=== PATIENT | male | born 1965 | race Caucasian/White ===

== ENCOUNTER 2019-06-29 16:28 | Emergency (ER) | payer SELFPAY ==
[2019-06-29 16:45] VITALS: BP 113/71
--- NOTE | 2019-06-29 16:50 | ER Document Report ---
ED Wound - General Chief Complaint: Wound Recheck Stated Complaint: WOUND CHECK Time Seen by Provider: 06/29/19 16:41 Primary Care Provider: SUMIT EDEN [NO LOCAL MD] - Follow up as needed Mode of Arrival: Ambulatory Information source: Patient Notes: 54-year-old male presented to ED for complaint of need for wound care to his bilateral lower extremity stasis ulcers. He states he last had them changed a week ago and has been getting them changed once a week with Acticoat dressings. He states he is trying to switch to the wound care clinic in [place] he has been going to [facility] wound care clinic. He states he cannot get into [place] and toe the of the month. He is alert oriented respirations regular nonlabored speaking in full sentences. He states the wounds are getting better he just needs the dressings changed. Dates he just traveled from [place] to [place] on . TRAVEL OUTSIDE OF THE [place] IN LAST 30 DAYS: No - HPI Patient complains to provider of: Other - Stasis ulcers both lower legs Occurred: Other - Off and on year and a half Onset/Duration: Intermittent Severity: Moderate Pain Level: 4 Skin Color: Erythema Associated Symptoms: Other - Related Data Allergies/Adverse Reactions: No Known Allergies Allergy (Unverified 06/29/19 16:49) Past Medical History - General Information source: Patient - Social History Smoking Status: Former Smoker Frequency of alcohol use: None Drug Abuse: None Lives with: Family Family History: Reviewed & Not Pertinent Patient has suicidal ideation: No Patient has homicidal ideation: No - Past Medical History Cardiac Medical History: Reports: Hx Congestive Heart Failure Pulmonary Medical History: Reports: Other - 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 EENT Medical History: Reports: None Neurological Medical History: Reports: None Endocrine Medical History: Reports: Hx Diabetes Mellitus Type 2 Renal/ Medical History: Reports: None Malignancy Medical History: Reports None GI Medical History: Reports: None Musculoskeletal Medical History: Reports Hx Arthritis, Reports Hx Musculoskeletal Deformity, Reports Hx Musculoskeletal Trauma Skin Medical History: Reports None Psychiatric Medical History: Reports: None Traumatic Medical History: Reports: Hx Fractures Infectious Medical History: Reports: None Past Surgical History: Reports: Hx Genitourinary Surgery - Vasectomy, Hx Tonsillectomy, 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 - Immunizations Immunizations up to date: Yes Hx Diphtheria, Pertussis, Tetanus Vaccination: Yes - 2018 Review of Systems - Review of Systems Constitutional: No symptoms reported EENT: No symptoms reported Cardiovascular: No symptoms reported Respiratory: No symptoms reported Gastrointestinal: No symptoms reported Genitourinary: No symptoms reported Male Genitourinary: No symptoms reported Musculoskeletal: No symptoms reported Skin: Other - Lysis ulcers Hematologic/Lymphatic: No symptoms reported Neurological/Psychological: No symptoms reported -: Yes All other systems reviewed and negative Physical Exam - Vital signs Vitals: Temp Pulse Resp BP Pulse Ox 98.1 F 100 18 113/71 97 06/29/19 16:44 06/29/19 16:44 06/29/19 16:44 06/29/19 16:44 06/29/19 16:44 Interpretation: Normal - General General appearance: Appears well, Alert - HEENT Head: Normocephalic, Atraumatic Eyes: Normal Pupils: PERRL - Respiratory Respiratory status: No respiratory distress Chest status: Nontender Breath sounds: Normal Chest palpation: Normal - Cardiovascular Rhythm: Regular Heart sounds: Normal auscultation Murmur: No - Abdominal Inspection: Normal Distension: No distension Bowel sounds: Normal Tenderness: Nontender Organomegaly: No organomegaly - Back Back: Normal, Nontender - Extremities General upper extremity: Normal inspection, Nontender, Normal color, Normal ROM, Normal temperature General lower extremity: Normal inspection, Nontender, Normal color, Normal ROM, Normal temperature, Normal weight bearing. No: Izzy's sign - Neurological Neuro grossly intact: Yes Cognition: Normal Orientation: AAOx4 [place] Coma Scale Eye Opening: Spontaneous [place] Coma Scale Verbal: Oriented Jenny Coma Scale Motor: Obeys Commands [place] Coma Scale Total: 15 Speech: Normal Motor strength normal: LUE, RUE, LLE, RLE Sensory: Normal - Psychological Associated symptoms: Normal affect, Normal mood - Skin Skin Temperature: Warm Skin Moisture: Dry Skin Color: Normal Course - Vital Signs Vital signs: Temp Pulse Resp BP Pulse Ox 98.1 F 100 18 113/71 97 06/29/19 16:44 06/29/19 16:44 06/29/19 16:44 06/29/19 16:44 06/29/19 16:44 Discharge - Discharge Clinical Impression: Encounter for wound re-check Condition: Stable Disposition: HOME, SELF-CARE Additional Instructions: Please follow-up with the senior procurement specialist as you are prescribed. If you cannot follow-up with your primary care or return to the ED in 1 week for redressing of your wounds. Silvadene please bring the Silvadene back with you. FOLLOW-UP CARE: If you have been referred to a physician for follow-up care, call the physicians office for an appointment as you were instructed or within the next two days. If you experience worsening or a significant change in your symptoms, notify the physician immediately or return to the Emergency Department at any time for re-evaluation. Referrals: LOCALMD,NO [NO LOCAL MD] - Follow up as needed
[2019-06-29] MEDS ORDERED: SILVER SULFADIAZINE 1% CREAM 400 GM TP ONE (16:51)
== END 2019-06-29 18:23 | disposition home or self-care (01) ==
LOC: ER 16:28
DX: I83.009 Varicose veins of unspecified lower extremity with ulcer of unspecified site (principal); I50.9 Heart failure, unspecified; E11.9 Type 2 diabetes mellitus without complications
CPT/HCPCS: 99282; J3490

== ENCOUNTER 2019-07-06 12:20 | Emergency (ER) | payer SELFPAY ==
[2019-07-06] MEDS ORDERED: SILVER SULFADIAZINE 1% CREAM 25 GM TP ONE (12:48)
--- NOTE | 2019-07-06 12:54 | ER Document Report ---
ED General - General Chief Complaint: Wound Recheck Stated Complaint: WOUND RECHECK Time Seen by Provider: 07/06/19 12:34 TRAVEL OUTSIDE OF THE [place] IN LAST 30 DAYS: No - HPI Notes: Chief complaint: Chronic lower leg ulcers 54-year-old male with chronic venous stasis ulcers of both lower legs comes in requesting replacement of dressings. This gentleman has recently moved here from [place] and has an appointment to go to the [place] wound clinic for initial visit on the of this month but is unable to see anyone else until then. He was seen here 1 week ago and had lower extremity dressings changed. He is come back today for a follow-up dressing change pending establishment of care wound care clinic. Patient is a type II diabetic. His blood sugars have ranged from 105 and 127 at home within the last week. He says he is compliant with prescribed medication. He is also taking 80 mg of Lasix twice daily. He quit smoking more than 25 years ago. Patient denies fever, chills, nausea or vomiting. - Related Data Allergies/Adverse Reactions: No Known Allergies Allergy (Unverified 06/29/19 16:49) Past Medical History - General Information source: Patient, [facility] Records - Social History Smoking Status: Former Smoker Family History: Reviewed & Not Pertinent Patient has suicidal ideation: No Patient has homicidal ideation: No - Past Medical History Cardiac Medical History: Reports: Hx Congestive Heart Failure Endocrine Medical History: Reports: Hx Diabetes Mellitus Type 2 Musculoskeletal Medical History: Reports Hx Arthritis, Reports Hx Musculoskeletal Deformity, Reports Hx Musculoskeletal Trauma Traumatic Medical History: Reports: Hx Fractures Past Surgical History: Reports: Hx Genitourinary Surgery - Vasectomy, Hx Tonsillectomy, 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 HENT: Negative for sore throat. Eyes: Negative for visual changes. Cardiovascular: Negative for chest pain. Respiratory: Negative for shortness of breath. Gastrointestinal: Negative for abdominal pain, vomiting or diarrhea. Genitourinary: Negative for dysuria. Musculoskeletal: As per HPI. Skin: Negative for rash. Neurological: Negative for headaches, weakness or numbness. 10 point ROS negative except as marked above and in HPI. Physical Exam - Vital signs Vitals: Temp Pulse Resp BP Pulse Ox 98.1 F 80 18 119/67 98 07/06/19 12:28 07/06/19 12:07/06/19 12:07/06/19 12:07/06/19 12:28 - Notes Notes: GENERAL: Obese male of approximately stated age appearing in no acute distress. SKIN: Chronic stasis dermatitis pretibial area bilaterally. HEAD: Normocephalic atraumatic. EYES: PERRLA. EOMI. Conjunctivae and sclerae clear. EARS: CANALS AND TMS CLEAR. NOSE: CLEAR. MOUTH: Moist mucosa. Poor dentition. No stridor or edema. No drooling. NECK: Supple. No masses or thyromegaly. No adenopathy. Carotids 2+ without bruits. No JVD. BACK: Symmetrical without tenderness. CHEST: Respirations unlabored. Breath sounds clear and symmetrical. HEART: Regular rhythm. No murmur gallop or rub. ABDOMEN: Obese. Soft nontender without masses, organomegaly or rebound. Bowel sounds normally active. No bruits. GENITALIA: Deferred. EXTREMITIES: 2+ bilateral pretibial edema. No calf tenderness. Cap refill less than 1.5 seconds. Dorsalis pedis and posterior tibial pulses 2+ and symmetrical. NEUROLOGICAL: GCS 15. Alert and oriented x3. Normal gait. Fluent speech. Cranial nerves II through XII intact. Sensorimotor and cerebellar normal. Normal tone. PSYCHIATRIC: Appropriate affect. Course - Vital Signs Vital signs: Temp Pulse Resp BP Pulse Ox 98.1 F 80 18 119/67 98 07/06/19 12:28 07/06/19 12:28 07/06/19 12:07/06/19 12:07/06/19 12:28 Procedures - Additional Procedures Dressing change Additional Procedures: Dressing Change - All dressings were removed from both lower legs. Wounds were irrigated with sterile saline. Silvadene applied. Redressed with Telfa, sterile gauze and Covan. Discharge - Discharge Clinical Impression: Encounter for wound re-check Condition: Stable Disposition: HOME, SELF-CARE Additional Instructions: Follow-up with wound care clinic as previously scheduled.
[2019-07-06 14:14] VITALS: BP 116/69
== END 2019-07-06 14:05 | disposition home or self-care (01) ==
LOC: ER 12:20
DX: I87.2 Venous insufficiency (chronic) (peripheral) (principal); E11.622 Type 2 diabetes mellitus with other skin ulcer; L97.929 Non-pressure chronic ulcer of unspecified part of left lower leg with unspecified severity; L97.919 Non-pressure chronic ulcer of unspecified part of right lower leg with unspecified severity; Z87.891 Personal history of nicotine dependence; I50.9 Heart failure, unspecified
CPT/HCPCS: 99282

== ENCOUNTER → 2019-07-08 | Outpatient (CLI) | payer OTHER ==
[2019-07-08 08:38] LABS: ABSOLUTE EOSINOPHILS # (AUTO) 0.5 10^3/uL (0.0-0.6); ABSOLUTE LYMPHOCYTES (AUTO) 0.2 10^3/uL (0.5-4.7); ABSOLUTE MONOCYTES (AUTO) 0.5 10^3/uL (0.1-1.4); ABSOLUTE NEUT (AUTO) 3.3 10^3/uL (1.7-8.2); BASOPHILS % (AUTO) 0.7 % (0-2); EOSINOPHILS % (AUTO) 11.6 % (0-6); HEMATOCRIT 44.2 % (37.9-51.0); HEMOGLOBIN 14.5 g/dL (13.5-17.0); LYMPHOCYTES % (AUTO) 5.2 % (13-45); MEAN CORPUSCULAR HEMOGLOBIN 26.2 pg (27.0-33.4); MEAN CORPUSCULAR HGB CONC 32.8 g/dL (32.0-36.0); MEAN CORPUSCULAR VOLUME 80 fl (80-97); MONOCYTES % (AUTO) 10.5 % (3-13); PLATELET COUNT 184 10^3/uL (150-450); RED BLOOD COUNT 5.54 10^6/uL (4.35-5.55); RED CELL DISTRIBUTION WIDTH 15.3 % (11.5-14.0); TOTAL CELLS COUNTED % (AUTO) 100 %; WHITE BLOOD COUNT 4.6 10^3/uL (4.0-10.5)
[2019-07-08 09:01] LABS: ALBUMIN 2.6 g/dL (3.5-5.0); ALKALINE PHOSPHATASE 130 U/L (38-126); ANION GAP 5 (5-19); ASPARTATE AMINO TRANSFERASE 20 U/L (17-59); BILIRUBIN,DIRECT 0.3 mg/dL (0.0-0.4); BILIRUBIN,TOTAL 0.4 mg/dL (0.2-1.3); BLOOD UREA NITROGEN 17 mg/dL (7-20); CALCIUM 7.9 mg/dL (8.4-10.2); CARBON DIOXIDE 34 mmol/L (22-30); CHLORIDE 91 mmol/L (98-107); POTASSIUM 3.7 mmol/L (3.6-5.0); TOTAL PROTEIN 5.2 g/dL (6.3-8.2); URIC ACID 5.1 mg/dL (3.5-8.5)
[2019-07-08 09:14] LABS: GLUCOSE 415 mg/dL (75-110)
== END ==
LOC: CCC 07:32
DX: Z00.00 Encounter for general adult medical examination without abnormal findings (principal)
CPT/HCPCS: 36415; 80053; 83036; 84550; 85025